=== PATIENT | male | born 1955 | race Asian ===

== ENCOUNTER 2017-06-12 10:28 | Emergency (ER) | payer BC ==
--- NOTE | 2017-06-12 12:55 | XRay Report ---
RIGHT SHOULDER RADIOGRAPHS INDICATION: Fall. COMPARISON: None similar at this institution. FINDINGS: Frontal and Y views of the right shoulder, 3 projections demonstrate normal humeral head contour, well positioned against the glenoid. Normal acromioclavicular joint. Preserved scapular contour. Normal visualized soft tissues, right ribs and lung. Possible osteopenia. CONCLUSION: No acute right shoulder radiographic abnormality, as described. Thank you for the opportunity to participate in this patient's care.
--- NOTE | 2017-06-12 16:07 | Emergency Department Report ---
ED Upper Extremity Inj HPI - General Chief Complaint: Shoulder Injury Stated Complaint: RT SHOULDER PAIN POST FALL Time Seen by Provider: 06/12/17 14:31 Source: patient, family Mode of arrival: Ambulatory Limitations: Language Barrier - History of Present Illness Initial Comments: This is a 61-year-old male accompanied by a daughter nontoxic, well nourished in appearance, no acute signs of distress presents to the ED complaining of right shoulder pain 1 month. Patient stated last month he slipped in a bath tube and went to an urgent care and received a pain shot that subsided symptoms but the symptoms never went away. Patient denies any new trauma to the extremity. Patient has decreased range of motion due to pain. Denies any nausea, vomiting, chest pain, shortness of breath, fever, chills, headache, stiff neck, back pain or other activity pain. Patient denies any allergies. Past medical history includes hypertension. MD Complaint: Injury to:: right, shoulder -: Gradual, month(s) (1) Other Extremity Injury: Shoulder: Right Other Injuries: none Place: home Severity scale (0 -10): 8 Improves With: none Worsens With: none Context: fall Associated Symptoms: denies other symptoms. denies: weakness, numbness, neck pain, suspects foreign body, nausea/vomiting, heard/felt popping sensat - Related Data Previous Rx's Medication Instructions Recorded Last Taken Type traMADol [Ultram] 50 mg PO Q6HR PRN #12 tablet 06/12/17 Unknown Rx Allergies Allergy/AdvReac Type Severity Reaction Status Date / Time No Known Allergies Allergy Unverified 06/12/17 11:36 ED Review of Systems ROS: Stated complaint: RT SHOULDER PAIN POST FALL Other details as noted in HPI Constitutional: denies: chills, fever Eyes: denies: eye pain, eye discharge, vision change ENT: denies: ear pain, throat pain Respiratory: denies: cough, shortness of breath, wheezing Cardiovascular: denies: chest pain, palpitations Endocrine: no symptoms reported Gastrointestinal: denies: abdominal pain, nausea, diarrhea Genitourinary: denies: urgency, dysuria Musculoskeletal: denies: back pain, joint swelling, arthralgia Skin: denies: rash, lesions Neurological: denies: headache, weakness, paresthesias Psychiatric: denies: anxiety, depression Hematological/Lymphatic: denies: easy bleeding, easy bruising ED Past Medical Hx - Past Medical History Previous Medical History?: Yes Hx Hypertension: Yes - Surgical History Past Surgical History?: Yes 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 Absent: scleral icterus, conjunctival injection, nystagmus, periorbital swelling, periorbital tenderness Pupils: Present: normal accommodation - ENT ENT exam: Present: normal exam, normal orophraynx, mucous membranes moist, TM's normal bilaterally, normal external ear exam - Neck Neck exam: Present: normal inspection, full ROM. Absent: tenderness, meningismus, lymphadenopathy, thyromegaly - Respiratory Respiratory exam: Present: normal lung sounds bilaterally. Absent: respiratory distress, wheezes, rales, rhonchi, stridor, chest wall tenderness, accessory muscle use, decreased breath sounds, prolonged expiratory - Cardiovascular Cardiovascular Exam: Present: regular rate, normal rhythm, normal heart sounds. Absent: bradycardia, tachycardia, irregular rhythm, systolic murmur, diastolic murmur, rubs, gallop - GI/Abdominal GI/Abdominal exam: Present: soft, normal bowel sounds. Absent: distended, tenderness, guarding, rebound, rigid, diminished bowel sounds - Rectal Rectal exam: Present: deferred - Extremities Exam Extremities exam: Present: normal inspection, full ROM, tenderness, normal capillary refill. Absent: pedal edema, joint swelling, calf tenderness - Expanded Upper Extremity Exam Left General: Present: normal inspection Shoulder Exam: Present: normal inspection, full ROM (minimal with pain), tenderness. Absent: swelling, abrasion, laceration, ecchymosis, deformity, crepidus, dislocation, erythema, tenderness over AC joint Upper Arm exam: Present: normal inspection, full ROM. Absent: tenderness, swelling, abrasion, laceration, ecchymosis, deformity, crepidus, dislocation, erythema Elbow exam: Present: normal inspection, full ROM Forearm Wrist exam: Present: normal inspection, full ROM Hand Wrist exam: Present: normal inspection, full ROM Neuro motor exam: Present: wrist extension intact, thumb opposition intact, thumb IP flexion intact, thumb adduction intact, fingers 2-5 abduction intact Neurosensory exam: Present: 2-point discrimination, radial nerve intact, ulnar nerve intact, median nerve intact Vascular: Present: vascular compromise, normal capillary refill, radial pulse, brachial pulse, ulnar pulse - Back Exam Back exam: Present: normal inspection, full ROM. Absent: tenderness, CVA tenderness (R), CVA tenderness (L), muscle spasm, paraspinal tenderness, vertebral tenderness, rash noted - Neurological Exam Neurological exam: Present: alert, oriented X3, CN II-XII intact, normal gait, reflexes normal - Psychiatric Psychiatric exam: Present: normal affect, normal mood - Skin Skin exam: Present: warm, dry, intact, normal color. Absent: rash - Other Other exam information: Neagative drop arm test ED Course Vital Signs 06/12/17 11:34 Temperature 98.6 F Pulse Rate 88 Respiratory 18 Rate Blood Pressure 144/85 O2 Sat by Pulse 100 Oximetry - Reevaluation(s) Reevaluation #1: 06/12/17 16:19 Patient is speaking in full sentences with no signs of distress noted. Reevaluation #2: 06/12/17 16:19 Daughter is present during interview and is currently translating. ED Medical Decision Making - Medical Decision Making 61-year-old male that presents with right shoulder pain versus rotator cuff. Patient was examined by me and patient is stable. X-ray has been obtained of shoulder with negative findings of any fractures or abnormalities or dislocations. Patient received a shoulder immobilizer with a Toradol shot 30 mg IM in the ED. Patient stated symptoms are decreasing and are subsiding. Patient was referred to follow up with Dr. Carrizales or another orthopedic doctor in 3-5 days or if symptoms worsening and continue return to emergency room as soon as possible. Patient is hemodynamically stable with stable vital signs. Patient states he is feeling better. At time time of discharge, the patient does not seem toxic or ill in appearance. No acute signs of distress noted. Patient agrees to discharge treatment plan of care. No further questions noted by the patient. Patient was also instructed to rest, elevate and ice extremity. Patient received Ultram and was instructed not to operate any machinery while taking Ultram due to sedation/drowsiness. Critical care attestation.: If time is entered above; I have spent that time in minutes in the direct care of this critically ill patient, excluding procedure time. ED Disposition Clinical Impression: Shoulder pain, right Qualifiers: Chronicity: unspecified Qualified Code(s): M25.511 - Pain in right shoulder Disposition: DC-01 TO HOME OR SELFCARE Is pt being admited?: No Does the pt Need Aspirin: No Condition: Stable Instructions: Tramadol (By mouth), Shoulder Sprain (ED), Rotator Cuff Injury ( ED), RICE Therapy (ED) Additional Instructions: Follow-up with Dr. Carrizales or another orthopedic doctor 3-5 days or if symptoms worsen and continue return to emergency room as soon as possible possible. Do not operate any machinery while taking Ultram due to sedation/drowsiness. Prescriptions: traMADol [Ultram] 50 mg PO Q6HR PRN #12 tablet PRN Reason: Pain Referrals: DR AVINASH [Other] - 3-5 Days ANGELES CARRIZALES MD [Staff Physician] - 3-5 Days [facility] [Outside] - 3-5 Days [facility] [Outside] - 3-5 Days Forms: Work/School Release Form(ED)
[2017-06-12] MEDS ORDERED: TORADOL IM ONE (16:20)
[2017-06-12 16:42] VITALS: BP 138/81
== END 2017-06-12 16:40 | disposition home or self-care (01) ==
LOC: ED 10:28
DX: M25.511 Pain in right shoulder (principal); I10 Essential (primary) hypertension
CPT/HCPCS: 29105; 73030; 99284; J1885